=== PATIENT | female | born 1990 | race African-American/Black ===

== ENCOUNTER 2018-06-17 12:14 | Emergency (ER) | payer OTHER ==
[2018-06-17 12:33] VITALS: BP 143/94; PULSE 91; TEMP 98.1; BMI 32.6
--- NOTE | 2018-06-17 13:26 | PDOC ---
History of Present Illness - General Chief Complaint: Psychiatric Stated Complaint: ANXIETY Time Seen by Provider: 06/17/18 12:49 History Source: Patient Exam Limitations: No Limitations - History of Present Illness Initial Comments: 06/17/18 13:26 Patient is a 28-year-old female with past medical history of anxiety, who presents to the ER after having an anxiety attack at work. 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 She states that workup very overwhelming and she had shortness of breath and palpitations. She states that once she left work she started to feel better. She states that work made her come to get evaluated. She reports no active symptoms at this time. She states that she feels better like to go home. Denies fevers, chills, recent illness, suicidal ideation, homicidal ideation, audio and visual hallucinations. Past History - Travel Traveled outside of the country in the last 30 days: No Close contact w/someone who was outside of country & ill: No - Past Medical History Allergies/Adverse Reactions: Allergies Allergy/AdvReac Type Severity Reaction Status Date / Time No Known Allergies Allergy Verified 06/17/18 12:33 Home Medications: Ambulatory Orders Ferrous Sulfate [Feosol] 325 mg PO DAILY 05/16/16 Vitamins (Sjr) - 1 tab PO DAILY 05/16/16 Ibuprofen [Motrin -] 600 mg PO QID PRN #28 tablet 06/01/16 Asthma: No Cancer: No Cardiac Disorders: No COPD: No Diabetes: No HTN: Yes (no meds;pre-eclampsia w/1st ) Psychiatric Problems: Yes (anxiety) Seizures: No Thyroid Disease: No - Suicide/Smoking/Psychosocial Hx Smoking Status: Yes Smoking History: Current some day smoker Have you smoked in the past 12 months: No Number of Cigarettes Smoked Daily: 1 Information on smoking cessation initiated: No Hx Alcohol Use: No Drug/Substance Use Hx: No Hx Substance Use Treatment: No Review of Systems - Review of Systems Able to Perform ROS?: Yes Comments:: 06/17/18 13:23 CONSTITUTIONAL: Absent: fever, chills, diaphoresis, generalized weakness, malaise, loss of appetite HEENT: Absent: rhinorrhea, nasal congestion, throat pain, throat swelling, difficulty swallowing, mouth swelling, ear pain, eye pain, visual Changes CARDIOVASCULAR: Absent: chest pain, loss of consciousness, palpitations, irregular heart rate, peripheral edema RESPIRATORY: Absent: cough, shortness of breath, dyspnea with exertion, orthopnea, wheezing, stridor, hemoptysis GASTROINTESTINAL: Absent: abdominal pain, abdominal distension, nausea, vomiting, diarrhea, constipation, melena, hematochezia GENITOURINARY: Absent: dysuria, frequency, urgency, hesitancy, hematuria, flank pain, genital pain MUSCULOSKELETAL: Absent: myalgia, arthralgia, joint swelling SKIN: Absent: rash, itching, pallor HEMATOLOGIC/IMMUNOLOGIC: Absent: easy bleeding, easy bruising, lymphadenopathy, frequent infections ENDOCRINE: Absent: unexplained weight gain, unexplained weight loss, heat intolerance, cold intolerance NEUROLOGIC: Absent: headache, focal weakness or paresthesias, dizziness, unsteady gait, seizure, mental status changes, bladder or bowel incontinence PSYCHIATRIC: Present: anxiety Absent: depression, suicidal or homicidal ideation, hallucinations. Is the patient limited Indonesian proficient: No *Physical Exam - Vital Signs Last Vital Signs Temp Pulse Resp BP Pulse Ox 98.1 F 91 H 18 143/94 100 06/17/18 12:30 06/17/18 12:30 06/17/18 12:30 06/17/18 12:30 06/17/18 12:30 - Physical Exam Comments: 06/17/18 13:23 GENERAL: Well developed, well nourished. Awake and alert. No acute distress. HEENT: Normocephalic, atraumatic. PERRLA, EOMI. No conjunctival pallor. Sclera are non- icteric. Moist mucous membranes. Oropharynx is clear. NECK: Supple. Full ROM. No JVD. Carotid pulses 2+ and symmetric, without bruits. No thyromegaly. No lymphadenopathy. CARDIOVASCULAR: Regular rate and rhythm. No murmurs, rubs, or gallops. Distal pulses are 2+ and symmetric. PULMONARY: No evidence of respiratory distress. Lungs clear to auscultation bilaterally. No wheezing, rales or rhonchi. ABDOMINAL: Soft. Non-tender. Non-distended. No rebound or guarding. No organomegaly. Normoactive bowel sounds. MUSCULOSKELETAL Normal range of motion at all joints. No bony deformities or tenderness. No CVA tenderness. EXTREMITIES: No cyanosis. No clubbing. No edema. No calf tenderness. SKIN: Warm and dry. Normal capillary refill. No rashes. No jaundice. NEUROLOGICAL: Alert, awake, appropriate. Cranial nerves 2-12 intact. No deficits to light touch and temperature in face, upper extremities and lower extremities. No motor deficits in the in face, upper extremities and lower extremities. Normoreflexic in the upper and lower extremities. Normal speech. Toes are down- going bilaterally. Gait is normal without ataxia. PSYCHIATRIC: Cooperative. Good eye contact. Appropriate mood and affect. Moderate Sedation - Procedure Monitoring Vital Signs: Procedure Monitoring Vital Signs Temperature 98.1 F 06/17/18 12:30 Pulse Rate 91 H 06/17/18 12:30 Respiratory Rate 18 06/17/18 12:30 Blood Pressure 143/94 06/17/18 12:30 O2 Sat by Pulse Oximetry (%) 100 06/17/18 12:30 Medical Decision Making - Medical Decision Making 06/17/18 13:28 Patient is a 28-year-old female who presents to the ER for a anxiety attack earlier work. Previous attack 2 years ago Upon arrival to the ER resolution of symptoms. No active anxiety attack at this time. No chest pain or shortness of breath. Vital signs are stable, afebrile. No SI, HI, A/V hallucinations. Patient states that she feels well like to go home. Patient does not want medication for anxiety. States she'll follow up with her primary care doctor this week. Discharge home I discussed the physical exam findings, ancillary test results and final diagnoses with the patient. I answered all of the patient's questions. The patient was satisfied with the care received and felt comfortable with the discharge plan and treatment plan. The Patient agrees to follow up with the primary care physician/specialist within 24-72 hours. Return precautions were given. *DC/Admit/Observation/Transfer Diagnosis at time of Disposition: Anxiety - Discharge Dispostion Disposition: HOME Condition at time of disposition: Stable Decision to Admit order: No - Referrals Referrals: Prakash Kearns MD [Staff Physician] - - Patient Instructions Printed Discharge Instructions: DI for Panic Disorder Additional Instructions: You had a panic attack today Your symptoms resolved in the ED Please follow up with your primary care doctor this week Return to the ED for worsening anxiety, suicidal ideation or if you have any changes in your symptoms - Post Discharge Activity Forms/Work/School Notes: Back to Work
== END 2018-06-17 13:41 | disposition home or self-care (01) ==
LOC: JERFT 12:14 → JER 12:14 → JERFT 13:41
DX: F41.9 Anxiety disorder, unspecified (principal)
CPT/HCPCS: 99281-25

== ENCOUNTER 2020-10-25 19:40 | Inpatient (IN) | payer OTHER ==
[2020-10-25 21:01] LABS: BASO % 0.2 % (0-2.0); EOS % 1.2 % (0-4.5); HEMATOCRIT 27.9 % (32.4-45.2); HEMOGLOBIN 9.1 GM/dL (10.7-15.3); LYMPH % 27.8 % (8-40); MCH 28.6 pg (25.7-33.7); MCHC 32.7 g/dl (32.0-36.0); MEAN CELL VOLUME 87.5 fl (80-96); MEAN PLT VOLUME 8.9 fl (7.5-11.1); NEUT % 60.8 % (42.8-82.8); PLATELET COUNT 176 K/MM3 (134-434); RBC 3.19 M/mm3 (3.60-5.2); RDW 16.2 % (11.6-15.6); WHITE BLOOD COUNT 6.3 K/mm3 (4.0-10.0)
[2020-10-25 21:10] LABS: INR 0.92 (0.83-1.09); PROTHROMBIN TIME (PATIENT) 11.4 SEC (9.7-13.0)
[2020-10-25 21:13] LABS: ACTIVATED PTT 24.3 SECONDS (25.2-36.5)
[2020-10-25] MEDS ORDERED: DINOPROSTONE 10 MG VAGINAL SUPPOSITORY VG ONE (21:15)
[2020-10-25 21:18] LABS: BLOOD UREA NITROGEN 10.3 mg/dL (7-18); CALCIUM 8.4 mg/dL (8.5-10.1)
[2020-10-25 21:22] LABS: CREATININE 0.7 mg/dL (0.55-1.3)
[2020-10-25] MEDS ORDERED: PROMETHAZINE HCL 25 MG/1 ML VIAL IVPUSH ONE (21:23)
[2020-10-25] MEDS ORDERED: BUTORPHANOL TARTRATE 1 MG/ML VIAL IVPB PRN (21:23)
[2020-10-25] MEDS: ELECTROLYTE-148 SOLN 1,000 ML IV SCH (22:00)
[2020-10-25 22:29] VITALS: BMI 38.2
[2020-10-26] MEDS: ELECTROLYTE-148 SOLN 1,000 ML IV SCH (01:00)
[2020-10-26] MEDS ORDERED: WITCH HAZEL 50% (TUCKS) 40 PAD/JAR PAD TP PRN (07:53)
[2020-10-26] MEDS ORDERED: BENZOCAINE 28 GM HEMORRHOIDAL OINTMENT PR PRN (07:53)
[2020-10-26] MEDS ORDERED: METHYLERGONOVINE MALEATE 0.2 MG/1 ML AMP IM PRN (07:53)
[2020-10-26] MEDS ORDERED: BENZOCAINE 20% 57 GM BOTTLE TP PRN (07:53)
[2020-10-26] MEDS ORDERED: BISACODYL 10 MG SUPP.RECT PR PRN (07:53)
[2020-10-26] MEDS ORDERED: OXYTOCIN 30 UNITS in 0.9% NS 30 UNIT/500 ML INFUS.BAG IVPB SCH (08:00)
[2020-10-26] MEDS ORDERED: OXYTOCIN 30 UNITS in 0.9% NS 30 UNIT/500 ML INFUS.BAG IVPB ONE (09:05)
[2020-10-26] MEDS ORDERED: FENTANYL/BUPIVACAINE/NS/PF - PCEA - 50 ML DISP.SYRIN EP ONE ×2 (09:16→13:13)
[2020-10-26] MEDS ORDERED: PCA PUMP NR ONE (09:17)
[2020-10-26] MEDS ORDERED: BUPIVACAINE HCL/PF 0.25% (2.5MG/ML) 10 ML VIAL ONE ×2 (09:18→12:23)
[2020-10-26] MEDS ORDERED: NALOXONE HCL 0.4 MG/ML VIAL IVPUSH PRN (09:57)
[2020-10-26] MEDS ORDERED: FENTANYL/BUPIVACAINE/NS/PF - PCEA - 50 ML DISP.SYRIN EP SCH ×2 (10:00→10:57)
[2020-10-26] MEDS ORDERED: OXYTOCIN 20 UNITS in 0.9% NS 20 UNIT/1,000 ML INFUS.BAG IV ONE (13:52)
[2020-10-26] MEDS ORDERED: ACETAMINOPHEN 325 MG TABLET (FP) ONE (14:35)
[2020-10-26] MEDS ORDERED: IBUPROFEN 600 MG TABLET (FP) PO ONE (14:35)
[2020-10-26] MEDS: IBUPROFEN 600 MG TABLET (FP) PO PRN ×2 (14:50→20:16)
[2020-10-26] MEDS: ACETAMINOPHEN 325 MG TABLET (FP) PO PRN ×2 (14:50→20:15)
[2020-10-26 15:25] LABS: CORD HCO3 23.3 mmHg (20-29); CORD PCO2 65.1 mmHg (30-78); CORD pH 7.171 (7.14-7.44)
[2020-10-26 15:28] LABS: CORD BASE EXCESS -6.6 mmol/L (0-2); CORD HCO3 20.3 mmHg (20-29); CORD PCO2 45.2 mmHg (30-78); CORD pH 7.27 (7.14-7.44)
[2020-10-27] MEDS: ACETAMINOPHEN 325 MG TABLET (FP) PO PRN ×2 (06:35→19:36)
[2020-10-27] MEDS: IBUPROFEN 600 MG TABLET (FP) PO PRN ×2 (06:35→19:36)
[2020-10-27 08:15] LABS: BASO % 0.3 % (0-2.0); HEMATOCRIT 24.7 % (32.4-45.2); HEMOGLOBIN 8.2 GM/dL (10.7-15.3); LYMPH % 25.8 % (8-40); MEAN CELL VOLUME 87.9 fl (80-96); MEAN PLT VOLUME 9.1 fl (7.5-11.1); MONO % 9.6 % (3.8-10.2); NEUT % 63.3 % (42.8-82.8); PLATELET COUNT 153 K/MM3 (134-434); RBC 2.81 M/mm3 (3.60-5.2)
[2020-10-28 09:02] VITALS: BP 135/79; PULSE 75; TEMP 98.6
== END 2020-10-28 11:35 | disposition home or self-care (01) | DRG 807 ==
LOC: JLDR 19:40 → J3W 10-26 16:00
PROVIDERS: ADMIT Obstetrics & Gynecology; ATTEND Obstetrics & Gynecology
PROC: 10E0XZZ Delivery of Products of Conception, External Approach (ICD-10-PCS; principal; 2020-10-26)
DX: O13.4 Gestational [pregnancy-induced] hypertension without significant proteinuria, complicating childbirth (principal); Z37.0 Single live birth; O99.02 Anemia complicating childbirth; O99.214 Obesity complicating childbirth; E66.9 Obesity, unspecified; Z3A.39 39 weeks gestation of pregnancy; D64.9 Anemia, unspecified
CPT/HCPCS: 36415; 36600; 59409; 80048; 82803; 85025; 85610; 85730; 86780; 86850; 86900; 86901

== ENCOUNTER 2023-06-20 14:24 | Emergency (ER) | payer OTHER ==
[2023-06-20 14:39] VITALS: BP 169/95; PULSE 76; RESP 17; TEMP 98.1; BMI 32.6
[2023-06-20 17:17] LABS: BASO % 0.4 % (0-2.0); EOS % 1.3 % (0-4.5); HEMATOCRIT 34.2 % (32.4-45.2); HEMOGLOBIN 11.2 GM/dL (10.7-15.3); LYMPH % 51.1 % (8-40); MCHC 32.8 g/dl (32.0-36.0); MEAN CELL VOLUME 88.5 fl (80-96); MEAN PLT VOLUME 8.1 fl (7.5-11.1); MONO % 6.4 % (3.8-10.2); NEUT % 40.8 % (42.8-82.8); PLATELET COUNT 300 10^3/uL (134-434); RBC 3.86 M/mm3 (3.60-5.2); RDW 13.7 % (11.6-15.6); WHITE BLOOD COUNT 7.1 K/mm3 (4.0-10.0)
[2023-06-20 17:20] LABS: INR 1.02 (0.83-1.09); PROTHROMBIN TIME (PATIENT) 11.8 SEC (9.7-13.0)
[2023-06-20 17:42] LABS: CHLORIDE 108 mmol/L (98-107); POTASSIUM 3.6 mmol/L (3.5-5.1); SODIUM 136 mmol/L (136-145)
[2023-06-20 17:43] LABS: CALCIUM 8.2 mg/dL (8.5-10.1); GLUCOSE,RANDOM 80 mg/dL (74-106)
[2023-06-20 17:44] LABS: ALBUMIN 3.4 g/dl (3.4-5.0); ANION GAP 2 mmol/L (4-13); BLOOD UREA NITROGEN 11.4 mg/dL (7-18); CO2 26 mmol/L (21-32)
[2023-06-20 17:47] LABS: CREATININE 0.7 mg/dL (0.55-1.3); SGOT/AST 12 U/L (15-37); SGPT/ALT 23 U/L (13-61)
[2023-06-20 17:48] LABS: BILIRUBIN,TOTAL 0.2 mg/dL (0.2-1); TOT PROT 7.6 g/dl (6.4-8.2)
[2023-06-20 17:50] LABS: ALK PHOS 42 U/L (45-117)
== END 2023-06-20 19:48 | disposition home or self-care (01) ==
LOC: JER 14:24
DX: R51.9 Headache, unspecified (principal); I10 Essential (primary) hypertension; R42 Dizziness and giddiness; H53.8 Other visual disturbances
CPT/HCPCS: 36415; 70450-TC; 71046-TC-FY; 80053; 84484; 84702; 84703; 85025; 85610; 85730; 93005; 93010; 99285-25